=== PATIENT | female | born 1990 | race Caucasian/White ===

== ENCOUNTER 2017-11-16 15:14 | Day surgery (SDC) | payer OTHER ==
[2017-11-16] MEDS ORDERED: PROPOFOL 20 ML (17:01)
[2017-11-16] MEDS ORDERED: MIDAZOLAM 1 MG/ML 2 ML INJ (17:01)
== END 2017-11-16 19:09 | disposition home or self-care (01) ==
LOC: GIL 15:14
DX: K21.9 Gastro-esophageal reflux disease without esophagitis (principal); K29.70 Gastritis, unspecified, without bleeding; K64.8 Other hemorrhoids
CPT/HCPCS: 43239; 84703; 87081; 88305